=== PATIENT | female | born 1950 | race Caucasian/White ===

== ENCOUNTER 2024-02-23 07:21 | Inpatient (IN) | payer OTHER ==
[2024-02-23] VITALS (62 sets, daily range): BP systolic 43–152; BP diastolic 35–115; PULSE 56–106; RESP 12–30; TEMP 34.66944–38.55864; O2SAT 97–100
[~2024-02-23] VITALS: Ht 157.5 cm; Wt 59.0 kg
[2024-02-23 07:40] LABS: BASOPHILS % 0.3 % (0.0-2.0); EOSINOPHILS % 0.6 % (0.0-5.0); HEMATOCRIT. 34.8 % (36.0-48.0); HEMOGLOBIN. 11.3 g/dL (12.0-16.0); MEAN CORPUSCULAR HEMOGLOBIN 31.8 pg (28.0-32.0); MEAN CORPUSCULAR HGB CONC 32.5 g/dL (31.0-37.0); MEAN CORPUSCULAR VOLUME 97.8 fL (81.0-99.0); MEAN PLATELET VOLUME 9.6 fl (7.4-10.4); MONOCYTES % 3.2 % (2.0-8.0); NEUTROPHILS % 33.9 % (40.0-76.0); PLATELET 198 x1000/uL (130-400); RED BLOOD CELL COUNT 3.56 mill/uL (4.2-5.4); RED CELL DISTRIBUTION WIDTH 13.7 % (11.6-14.6); WHITE BLOOD COUNT 8.5 x1000/uL (4.5-11.0)
[2024-02-23] MEDS ORDERED: ACETAMINOPHEN 650MG SUPP PR PRN (07:45)
[2024-02-23 07:49] LABS: CHLORIDE 109 mEq/L (98-107); POTASSIUM 3.2 mEq/L (3.5-5.1); SODIUM 140 mEq/L (136-145)
[2024-02-23 07:50] LABS: CALCIUM 8.2 mg/dL (8.7-10.4); CARBON DIOXIDE 21 mEq/L (21-32)
[2024-02-23 07:55] LABS: GLUCOSE 327 mg/dL (70-105); UREA NITROGEN BLOOD 13 mg/dL (9-23)
[2024-02-23 07:57] LABS: PROTHROMBIN TIME 11.5 sec (9.6-11.0)
[2024-02-23 08:08] LABS: BG CARBOXYHEMOGLOBIN 0.3 % (0.5-1.5); BG DEOXYHEMOGLOBIN 0.6 % (0.0-5.0); BG METHEMOGLOBIN 0.2 % (0.5-1.5); BG OXYGEN SATURATION 99.4 % (94.0-98.0); BG OXYHEMOGLOBIN 98.9 % (94.0-98.0); BG PCO2 32.3 mmHg (32.0-45.0); BG PH 7.314 (7.350-7.450); BG PO2 352.4 mmHg (83.0-108.0); BG SAMPLE SITE RIGHT BRACHIAL; BG TOTAL HEMOGLOBIN 12.3 g/dL (12.0-16.0); BG VENT MODE VENT - AC
[2024-02-23 08:10] LABS: TROPONIN I HIGH SENSITIVITY 77 ng/L (3.0-34)
[2024-02-23] MEDS: CLOPIDOGREL 75MG TABLET PO ONE (08:45)
[2024-02-23] MEDS: ASPIRIN 325MG EC TABLET PO ONE (08:45)
[2024-02-23] MEDS: FENTANYL 2500MCG/250ML PMX 250 ML IV ONE (08:45)
[2024-02-23] MEDS: PROPOFOL 10MG/ML 100ML 100 ML IV ONE (09:12)
[2024-02-23 09:33] LABS: PHOSPHORUS 7.3 mg/dL (2.5-4.9)
[2024-02-23 11:26] LABS: BG BASE EXCESS -2.8 mmol/L (-2.0-3.0); BG CARBOXYHEMOGLOBIN 0.1 % (0.5-1.5); BG DEOXYHEMOGLOBIN 1.4 % (0.0-5.0); BG HCO3 ACT 19.7 mmol/L (21.0-28.0); BG METHEMOGLOBIN 0.3 % (0.5-1.5); BG OXYGEN SATURATION 98.6 % (94.0-98.0); BG OXYHEMOGLOBIN 98.2 % (94.0-98.0); BG PCO2 28.5 mmHg (32.0-45.0); BG PH 7.457 (7.350-7.450); BG PO2 132.6 mmHg (83.0-108.0); BG SAMPLE SITE RIGHT BRACHIAL; BG TOTAL HEMOGLOBIN 14.1 g/dL (12.0-16.0); BG VENT MODE VENT - AC
[2024-02-23] MEDS: ASPIRIN 325MG EC TABLET PO NR (11:53)
[2024-02-23] MEDS: CLOPIDOGREL 75MG TABLET PO NR (11:53)
[2024-02-23] MEDS: KCL 20MEQ/100ML PREMIX 100 ML IV SCH (11:53)
[2024-02-23] MEDS: BLOOD SUGAR DIAGNOSTIC STRIP TEST SCH (12:43)
[2024-02-23] MEDS: POTASSIUM CHLORIDE 30 MEQ in SODIUM CHLORIDE 0.45% 1,000 ML IV SCH (13:40)
[2024-02-23] MEDS ORDERED: PROPOFOL 10MG/ML 100ML 100 ML IV PRN (15:00)
[2024-02-23 15:39] LABS: CLARITY URINE CLEAR (CLEAR); COLOR URINE YELLOW (YELLOW); GLUCOSE URINE 3+ (NEGATIVE); KETONES URINE TRACE (NEGATIVE); LEUKOCYTE ESTERASE URINE NEGATIVE (NEGATIVE); NITRITE URINE NEGATIVE (NEGATIVE); OCCULT BLOOD URINE 1+ (NEGATIVE); PROTEIN URINE 1+ (NEGATIVE); SPECIFIC GRAVITY URINE 1.012 (1.005-1.030); UROBILINOGEN URINE 0.2 E.U./dL (0.2-1.0)
[2024-02-23 15:48] LABS: *AMPHETAMINES SCREEN URINE NEGATIVE (NEGATIVE); *BARBITURATES SCREEN URINE NEGATIVE (NEGATIVE); *BENZODIAZEPINES SCREEN URINE NEGATIVE (NEGATIVE); *COCAINE SCREEN URINE NEGATIVE (NEGATIVE); CANNABINOID URINE SCREEN NEGATIVE (NEGATIVE); METHADONE URINE SCREEN NEGATIVE (NEGATIVE); OPIATES URINE SCREEN NEGATIVE (NEGATIVE); PHENCYCLIDINE URINE SCREEN NEGATIVE (NEGATIVE)
[2024-02-23 15:49] LABS: ECSTASY MDMA SCREEN URINE NEGATIVE (NEGATIVE)
[2024-02-23 15:54] LABS: TROPONIN I HIGH SENSITIVITY 4286 ng/L (3.0-34)
[2024-02-23 16:37] LABS: BACTERIA URINE 1+; RBC URINE 0-2 /hpf (0-2); SQUAMOUS EPITHELIAL CELL URINE NONE SEEN /lpf (RARE/1+); WBC URINE 0-2 /hpf (0-2)
[2024-02-23] MEDS ORDERED: FAMO20TA8 PO (17:44)
[2024-02-23] MEDS: ACETAMINOPHEN 650MG/20.3ML UDC NG PRN (18:35)
[2024-02-23] MEDS: HEPARIN 5000 UNITS/ML VIAL IV NR (20:45)
[2024-02-23] MEDS: HEPARIN 25,000 UNITS PREMIX 250 ML IV PRN (20:52)
[2024-02-23] MEDS: PHENYLEPHRINE 50MG/250ML PMX 250 ML IV PRN (21:08)
[2024-02-23] MEDS: NOREPINEPHRINE 8MG/250ML PMX 250 ML IV PRN (21:49)
[2024-02-23] MEDS ORDERED: DOPAMINE 400MG/250ML PREMIX 250 ML IV PRN (22:15)
[2024-02-23 22:33] LABS: BG BASE EXCESS -8.7 mmol/L (-2.0-3.0); BG CARBOXYHEMOGLOBIN 0.1 % (0.5-1.5); BG DEOXYHEMOGLOBIN 1.8 % (0.0-5.0); BG FRACTION INSPIRED OXYGEN 60; BG HCO3 ACT 14.8 mmol/L (21.0-28.0); BG METHEMOGLOBIN 0.1 % (0.5-1.5); BG OXYGEN SATURATION 98.2 % (94.0-98.0); BG PCO2 26.4 mmHg (32.0-45.0); BG PH 7.366 (7.350-7.450); BG PO2 138.5 mmHg (83.0-108.0); BG SAMPLE SITE RIGHT BRACHIAL; BG VENT MODE VENT - AC
[2024-02-23] MEDS: SODIUM BICARBONATE 8.4% 50MEQ/50ML SYR IV NR (23:17)
[2024-02-23] MEDS: LEVETIRACETAM 500MG PREMIX 100 ML IV SCH (23:18)
[2024-02-23 23:57] LABS: TROPONIN I HIGH SENSITIVITY 7524 ng/L (3.0-34)
[2024-02-24] VITALS (107 sets, daily range): BP systolic 56–152; BP diastolic 41–113; PULSE 52–108; RESP 13–18; TEMP 35.05836–36.83628; O2SAT 97–100
[2024-02-24] MEDS ORDERED: HEPARIN 5000 UNITS/ML VIAL IV PRN (02:00)
[2024-02-24 03:35] LABS: CHLORIDE 109 mEq/L (98-107); SODIUM 137 mEq/L (136-145)
[2024-02-24 03:36] LABS: CALCIUM 8.5 mg/dL (8.7-10.4); CARBON DIOXIDE 19 mEq/L (21-32)
[2024-02-24 03:41] LABS: CREATININE 0.9 mg/dL (0.6-1.0); GLUCOSE 179 mg/dL (70-105); TRIGLYCERIDE 64 mg/dL (0-150); UREA NITROGEN BLOOD 14 mg/dL (9-23)
[2024-02-24 03:47] LABS: POTASSIUM 5.3 mEq/L (3.5-5.1)
[2024-02-24 03:48] LABS: TROPONIN I HIGH SENSITIVITY 5037 ng/L (3.0-34)
[2024-02-24] MEDS: SODIUM CHLORIDE 0.45% 1,000 ML IV SCH (06:12)
[2024-02-24 08:17] LABS: BG BASE EXCESS -7.2 mmol/L (-2.0-3.0); BG CARBOXYHEMOGLOBIN 0.4 % (0.5-1.5); BG FRACTION INSPIRED OXYGEN 40; BG METHEMOGLOBIN 0.3 % (0.5-1.5); BG OXYHEMOGLOBIN 98.3 % (94.0-98.0); BG PCO2 26.7 mmHg (32.0-45.0); BG PH 7.396 (7.350-7.450); BG PO2 139.9 mmHg (83.0-108.0); BG SAMPLE SITE RIGHT BRACHIAL; BG TOTAL HEMOGLOBIN 13.8 g/dL (12.0-16.0); BG VENT MODE VENT - AC
[2024-02-24 08:35] LABS: BASOPHILS % 0.2 % (0.0-2.0); HEMATOCRIT. 43.1 % (36.0-48.0); LYMPHOCYTES % 7.7 % (20.0-50.0); MEAN CORPUSCULAR HGB CONC 32.5 g/dL (31.0-37.0); MEAN CORPUSCULAR VOLUME 95.2 fL (81.0-99.0); MEAN PLATELET VOLUME 9.8 fl (7.4-10.4); MONOCYTES % 7.6 % (2.0-8.0); NEUTROPHILS % 84.5 % (40.0-76.0); PLATELET 178 x1000/uL (130-400); RED BLOOD CELL COUNT 4.53 mill/uL (4.2-5.4); RED CELL DISTRIBUTION WIDTH 13.6 % (11.6-14.6); WHITE BLOOD COUNT 23.3 x1000/uL (4.5-11.0)
[2024-02-24] MEDS: PANTOPRAZOLE SODIUM 40 MG/VIAL IV SCH (09:00)
[2024-02-24] MEDS ORDERED: SODIUM POLYSTYRENE SULFONATE 15 G/60 ML BOT NG ONE (11:15)
[2024-02-24] MEDS: SODIUM ZIRCONIUM CYCLOSILICATE 10GM/PACKET NG SCH (13:12)
[2024-02-24] MEDS: IOHEXOL-350 100 ML BOTTLE ONE (14:58)
[2024-02-24] MEDS: LEVETIRACETAM 500MG PREMIX 100 ML IV SCH (21:16)
[2024-02-24] MEDS: HEPARIN 5000 UNITS/ML VIAL IV PRN (21:16)
[2024-02-24] MEDS: DESMOPRESSIN ACETATE 4MCG/ML AMP SUBCUT SCH (23:02)
[2024-02-24 23:38] LABS: POTASSIUM URINE RANDOM 18.1 mEq/L
[2024-02-24 23:49] LABS: CHLORIDE 114 mEq/L (98-107); POTASSIUM 3.8 mEq/L (3.5-5.1); SODIUM 144 mEq/L (136-145)
[2024-02-24 23:50] LABS: CARBON DIOXIDE 19 mEq/L (21-32)
[2024-02-24 23:55] LABS: CREATININE 0.6 mg/dL (0.6-1.0); GLUCOSE 150 mg/dL (70-105); UREA NITROGEN BLOOD 12 mg/dL (9-23)
[2024-02-25] VITALS (88 sets, daily range): BP systolic 55–136; BP diastolic 43–93; PULSE 54–75; RESP 14–16; TEMP 33.66936–36.22512; O2SAT 96–100
[2024-02-25 05:13] LABS: CARBON DIOXIDE 20 mEq/L (21-32); CHLORIDE 113 mEq/L (98-107); POTASSIUM 3.9 mEq/L (3.5-5.1); SODIUM 141 mEq/L (136-145)
[2024-02-25 05:15] LABS: CALCIUM 8.5 mg/dL (8.7-10.4)
[2024-02-25 05:19] LABS: CREATININE 0.7 mg/dL (0.6-1.0); GLUCOSE 154 mg/dL (70-105)
[2024-02-25 05:20] LABS: UREA NITROGEN BLOOD 14 mg/dL (9-23)
[2024-02-25 05:38] LABS: BASOPHILS % 0.1 % (0.0-2.0); HEMATOCRIT. 37.1 % (36.0-48.0); HEMOGLOBIN. 12.6 g/dL (12.0-16.0); LYMPHOCYTES % 9.8 % (20.0-50.0); MEAN CORPUSCULAR HEMOGLOBIN 31.2 pg (28.0-32.0); MEAN CORPUSCULAR HGB CONC 33.8 g/dL (31.0-37.0); MEAN CORPUSCULAR VOLUME 92.3 fL (81.0-99.0); MEAN PLATELET VOLUME 10.8 fl (7.4-10.4); MONOCYTES % 4.9 % (2.0-8.0); NEUTROPHILS % 85.2 % (40.0-76.0); PLATELET 170 x1000/uL (130-400); RED BLOOD CELL COUNT 4.02 mill/uL (4.2-5.4); RED CELL DISTRIBUTION WIDTH 13.4 % (11.6-14.6); WHITE BLOOD COUNT 15.2 x1000/uL (4.5-11.0)
== END 2024-02-25 23:51 ==
LOC: ER 07:21 → MICUSO 08:20
PROVIDERS: ADMIT Internal Medicine; ATTEND Internal Medicine
PROC: 5A1945Z Respiratory Ventilation, 24-96 Consecutive Hours (ICD-10-PCS; principal; 2024-02-23)
PROC: 0BH17EZ Insertion of Endotracheal Airway into Trachea, Via Natural or Artificial Opening (ICD-10-PCS; 2024-02-23)
PROC: 5A12012 Performance of Cardiac Output, Single, Manual (ICD-10-PCS; 2024-02-23)
PROC: 4A10X4Z Monitoring of Central Nervous Electrical Activity, External Approach (ICD-10-PCS; 2024-02-24)
DX: I21.4 Non-ST elevation (NSTEMI) myocardial infarction (principal); I50.21 Acute systolic (congestive) heart failure; J96.91 Respiratory failure, unspecified with hypoxia; G93.40 Encephalopathy, unspecified; Z66 Do not resuscitate; I46.9 Cardiac arrest, cause unspecified; R79.89 Other specified abnormal findings of blood chemistry; Z20.822 Contact with and (suspected) exposure to COVID-19; E78.00 Pure hypercholesterolemia, unspecified; I25.10 Atherosclerotic heart disease of native coronary artery without angina pectoris
CPT/HCPCS: 31500; 36415; 36600; 71045; 71275; 78610; 80048; 80305; 81003; 82375; 82436; 82805; 82962; 83036; 83735; 83935; 84100; 84133; 84300; 84478; 84484; 85025; 85379; 87426; 93005; 93306; 94003; 95816; 99291; A9512; J1265; J1644; J1953; J2470; J2597; J2704; J3010; J3480; J3490; Q9967